=== PATIENT | female | born 1980 | race Caucasian/White ===

== ENCOUNTER 2023-11-07 16:00 | Emergency (ER) | payer BC, SELFPAY ==
[2023-11-07 16:02] VITALS: BP 133/87
[2023-11-07 16:04] VITALS: BMI 25.9
[2023-11-07 17:02] LABS: % Basophils 0.9 % (0-2); % Eosinophils 3.2 % (0-6); % Immature Granulocytes 0.2 % (0-0.5); % Lymphocytes 33.8 % (20.5-51.1); % Monocytes 9.5 % (1.7-9.3); % Neutrophils 52.4 % (42.2-75.2); Absolute Basophils 0.1 10^3/uL (0-0.2); Absolute Eosinophils 0.2 10^3/uL (0-0.7); Absolute Lymphocytes 1.8 10^3/uL (1.2-3.4); Absolute Monocytes 0.5 10^3/uL (0.1-0.6); Absolute Neutrophils 2.8 10^3/uL (1.4-6.5); Hematocrit 39.8 % (37.0-47.0); Hemoglobin 13.9 g/dL (12.0-16.0); Mean Corp Hgb Conc. 34.9 g/dL (33.0-37.0); Mean Corpuscular Hgb 32.3 pg (27.0-31.0); Mean Corpuscular Volume 92.3 fL (81.0-99.0); Mean Platelet Volume 8.8 fL (7.4-10.4); Nucleated Red Blood Cells % 0 %; Platelet Count 384 10^3/uL (130-400); Red Blood Cell Count 4.31 10^6/uL (4.20-5.40); Red Cell Dist. Width 12.7 % (11.5-14.5); White Blood Cell Count 5.4 10^3/uL (4.8-10.8)
[2023-11-07 17:03] LABS: Urine Albumin Negative (Neg - Trace); Urine Bilirubin Negative (Negative); Urine Character Clear (Clear); Urine Color Yellow; Urine Glucose Negative (Negative); Urine Ketone 1+ (Negative); Urine Leukocyte Negative (Negative); Urine Nitrite Negative (Negative); Urine Occult Blood Negative (Negative); Urine Specific Gravity 1.015 (<1.030); Urine Urobilinogen Negative (Neg - 1+); Urine pH 6.5 (5.0-9.0)
[2023-11-07] MEDS: ZOFRAN 4 MG IV (17:05)
[2023-11-07] MEDS: BENTYL 20 MG IM (17:05)
[2023-11-07 17:13] LABS: HCG, Serum Qualitative Screen Negative
[2023-11-07 17:18] LABS: ALT (SGPT) 27 U/L (0-35); AST (SGOT) 24 U/L (14-36); Albumin 4.9 g/dl (3.5-5.0); Alkaline Phosphatase 62 U/L (38-126); Blood Urea Nitrogen 9 mg/dl (7-17); Calcium 9.8 mg/dl (8.4-10.2); Carbon Dioxide 26 mmol/L (22-30); Chloride 100 mmol/L (98-107); Estimated Creatinine Clearance 99 ml/min; Glucose 98 mg/dl (70-99); Lipase 32 U/L (23-300); Potassium 3.8 mmol/L (3.5-5.1); Sodium 136 mmol/L (135-145); Total Bilirubin 0.6 mg/dl (0.2-1.3); Total Protein 7.9 g/dl (6.3-8.2); eGFR > 60.00
--- NOTE | 2023-11-07 17:23 | ED.GENMED ---
History of Present Illness
General
Chief Complaint: Abdominal Pain
Source: patient
Exam Limitations: none
Time Seen by Provider: 11/07/23 16:43
Nursing documentation reviewed up to this point in time: agreed with
Travel History
Have you had any contact with someone who has COVID-19?: No
Do you have any symptoms of coronavirus? Fever > 100 degrees, chills, cough, shortness of breath, sore throat, loss of taste or smell, muscle aches, or headache?: No
History of Present Illness
History of Present Illness:
43-year-old female with past medical history of IBS, GERD, asthma presenting to the emergency department from GI office with concerns of upper abdominal pain diffuse abdominal pain as well as 2 days of diarrhea has had some symptoms to some degree
over the past month has had decreased appetite as well. Has not been eating much over the past week.
Past History
Past History
ED Past Medical History: GERD and Other (Miscarriage, Pre aclampsia, Ovarian cyst, IBS)
ED Past Surgical History: and Gynecological
Social History
Tobacco: Non-smoker
Alcohol: Occasional
Personal:
Living: with family
Review of Systems
Review of Systems
Allergies reviewed?: Yes
All Other Systems: ROS reviewed and negative except as documented in HPI and ROS
Phy Exam
Physical Exam
Physical Exam:
GENERAL: Alert , in no apparent distress
EYE: pupils equal and reactive
NECK: Supple, no significant adenopathy.
ENT: o/p clr, mmm.
CARDIAC: Regular rate and rhythm .
LUNGS: Clear breath sounds bilaterally, no acute respiratory distress, no wheezes/rales/rhonchi
ABDOMEN: Abdominal pain mainly to the diffuse lower quadrants as well as the epigastric region no significant pain to the right upper quadrant left upper quadrant.
NEUROLOGICAL: Alert and oriented, no focal neuro deficits
SKIN: Warm and dry, skin intact.
MUSCULOSKELETAL: No edema, well perfused.
PSYCH: Normal and appropriate interaction.
Course
Orders/Labs/Results
Orders:
Orders
11/07/23 16:42
Test Result ONCE
11/07/23 16:45
Complete Blood Count/With Diff Urgent
Comprehensive Metabolic Panel Urgent
HCG, Serum Qualitative Screen Urgent
Lipase Urgent
11/07/23 16:49
Urinalysis Reflex To Culture Urgent
Date Specimen was Collected: 11/07/23
Time Specimen was Collected: 16:48
11/07/23 17:01
CT Abd/Pel (IV only)-DH only Urgent
Comment:
Reason For Exam: diffuse abd pain
Dicyclomine HCl [Bentyl] 20 mg IM NOW STA
Ondansetron Injectable [Zofran] 4 mg IV NOW STA
Abnormal Lab Results
11/07/23 11/07/23
16:45 16:49
MCH 32.3 H pg
(27.0-31.0)
Monocytes % 9.5 H %
(1.7-9.3)
Urine Ketones 1+ A
(Negative)
11/07/23 16:45
11/07/23 16:45
Vital Signs
Initial and Last Documented VS:
Initial Vital Signs
Temp Pulse Resp BP Pulse Ox
98.2 F 81 16 133/87 100
11/07/23 16:02 11/07/23 16:02 11/07/23 16:02 11/07/23 16:02 11/07/23 16:02
Last Documented Vital Signs
Temp Pulse Resp BP Pulse Ox
98.2 F 81 16 133/87 100
11/07/23 16:02 11/07/23 16:02 11/07/23 16:02 11/07/23 16:02 11/07/23 16:02
MDM/Problems Addressed
MDM/Problems Addressed:
43-year-old female presenting to the emergency department today with concerns of diffuse abdominal pain over the past month some slight diarrhea as well as decreased appetite over the past week. Was sent in by the GI doctor. Here has somewhat
diffuse abdominal pain mainly to the lower quadrants and epigastrium. Vital signs here were normal labs unremarkable troponin negative normal liver function test normal urinalysis. CT scan without emergent findings. No emergent findings on all
labs and urinalysis patient in no distress when reassessed after receiving Bentyl and Zofran. Case was discussed with patient's GI doctor who will have her follow-up closely as an outpatient and recommend starting her on Linzess stable for
discharge.
*Critical Care Note
Total Time (30-74mins, 75-104mins- exclusive of procedures): Not Applicable
ED Attending Note
-
Portions of this chart may have been created with voice recognition software.� Occasional wrong word or��sound alike� substitutions may have occurred due to the inherent limitations of voice recognition software.
Discharge Plan
Departure
Patient Disposition: Home (Routine Discharge)
Date of Disposition: 11/07/23
Time of Disposition: 19:15
Patient with high blood pressure during this ER visit?: No
Condition: Good
Covid-19: Not Applicable
Discharge Problem:
Abdominal pain
Instructions: Constipation, Adult (DC), Abdominal Pain
Prescriptions:
New
psyllium husk [Metamucil] 0.4 gram capsule
0.4 g PO DAILY PRN (Reason: Constipation) Qty: 10 0RF
polyethylene glycol 3350 [ClearLax] 17 gram/dose powder
4 g PO DAILY Qty: 119 0RF
Linzess 145 mcg capsule
145 mcg PO DAILY 14 Days Qty: 14 0RF
No Action
cetirizine 10 MG tablet
10 mg PO DAILY
rizatriptan [Maxalt] 10 MG tablet
10 mg PO PRN PRN (Reason: migraine)
topiramate 25 MG tablet
25 mg PO DAILY
sumatriptan succinate 6 MG/0.5 ML solution
6 mg SC PRN PRN (Reason: migraine)
pantoprazole 40 MG tablet,delayed release (DR/EC)
40 mg PO DAILY
buspirone 10 MG tablet
10 mg PO DAILY
albuterol sulfate [Proventil HFA] 90 MCG/PUFF HFA aerosol inhaler
1 puff inhalation PRN PRN (Reason: allergies)
fluticasone propionate 1 SPRAY spray,suspension
1 spray intranasal DAILY
Immunotherapy
1 dose INJ PRN PRN (Reason: according to regiment)
naproxen sodium [Aleve] 220 MG tablet
440 mg PO Q12H
cyclobenzaprine 10 MG tablet
10 mg PO PRN PRN (Reason: muscle pain)
alprazolam 0.5 MG tablet
0.25 mg PO Q6HPRN PRN (Reason: anxious)
duloxetine 20 MG capsule,delayed release(DR/EC)
20 mg PO QPM
acetaminophen 325 MG tablet
650 mg PO Q4HPRN PRN (Reason: mild pain) 0RF
hydromorphone 2 MG tablet
2 mg PO Q4HPRN PRN (Reason: severe pain ) Qty: 18 0RF
ibuprofen 200 MG tablet
600 mg PO Q4H PRN (Reason: mild pain) Qty: 0 0RF
Rx Instructions:
take with food
Referrals:
Adrian Galan MD [Active] - Follow up in 5-7 days
Tarik Woodruff DO [Family Provider] -
Activity Restrictions/Additional Instructions:
You came to the emergency department today with concerns of abdominal symptoms. Here you had a reassuring evaluation with normal CT and labs. Please follow closely with your GI doctor and take prescribed medications to help with symptoms. Return
to the emergency department for any worsening, new or concerning symptoms.
Interventions
Interventions:
*Risk Screen - Suicide Last Done: 11/07/23 16:02
*General Assessment Last Done: 11/07/23 16:47
*Neglect/Abuse Screening Last Done: 11/07/23 16:47
*ED COVID-19 Vaccine History Last Done: 11/07/23 16:04
[id number] Assessment Last Done: 11/07/23 16:47
[2023-11-07 19:49] VITALS: BP 130/79
== END 2023-11-07 19:50 | disposition home or self-care (01) ==
LOC: EMR 16:00
PROVIDERS: EMERGENCY PHYSICIAN Emergency Medicine; FAMILY PHYSICIAN Family Medicine
DX: R10.10 Upper abdominal pain, unspecified (principal); R19.7 Diarrhea, unspecified; K21.9 Gastro-esophageal reflux disease without esophagitis; J45.909 Unspecified asthma, uncomplicated; K58.0 Irritable bowel syndrome with diarrhea; Z91.040 Latex allergy status; Z88.5 Allergy status to narcotic agent; Z91.010 Allergy to peanuts; Z88.0 Allergy status to penicillin; Z91.013 Allergy to seafood; Z88.8 Allergy status to other drugs, medicaments and biological substances; Z91.018 Allergy to other foods; Z91.048 Other nonmedicinal substance allergy status
CPT/HCPCS: 99285; 96372; 96374; 74177; 80053; 81003; 83690; 84703; 85025; Q9967

== ENCOUNTER → 2023-11-19 06:34 | Day surgery (SDC) | payer BC, SELFPAY | LOC: GI 06:34 | PROVIDERS: ATTENDING PHYSICIAN Internal Medicine Gastroenterology | DX: R13.10 Dysphagia, unspecified (principal); K31.89 Other diseases of stomach and duodenum; K29.70 Gastritis, unspecified, without bleeding | CPT/HCPCS: 43239; 88305; 88342 ==

== ENCOUNTER 2024-03-05 08:58 | Emergency (ER) | payer BC, SELFPAY ==
[2024-03-05 09:02] VITALS: BP 116/80
--- NOTE | 2024-03-05 09:28 | ED.GENMED ---
History of Present Illness
General
Chief Complaint: Headache
Source: patient
Time Seen by Provider: 03/05/24 09:16
History of Present Illness
History of Present Illness:
43yoF with a history of lupus, migraines, IBS, and GERD presenting with her for evaluation of a headache. Headache began around 2 am this morning and was gradual in onset. Her headache feels like her typical migraines although it has been
years since she has had an episode this bad. Her pain is located frontally and is currently rated as a 10/10 in severity. She tried to take a dose of Maxalt but vomited shortly after taking it. Her then administered a sumatriptan injection
without relief. She reports photophobia and ongoing nausea. She also has indigestion which is chronic for her.
Past History
Past History
ED Past Medical History: GERD and Other (Miscarriage, Pre aclampsia, Ovarian cyst, IBS)
ED Past Surgical History: and Gynecological
Social History
Tobacco: Non-smoker
Alcohol: Occasional
Personal:
Living: with family
Phy Exam
Physical Exam
Physical Exam:
Sitting in a dark exam room with an eye mask on
General Physical Exam
General Presentation: moderate distress
General age: appears stated age
General Skin: warm and dry
General Habitus: normal
General Mental: alert
ENT Exam
ENT Exam: normocephalic
Additional ENT: No meningismus
Cardiovascular Exam
Cardiovascular Exam: regular rate/rhythm and no murmur
Pulmonary Exam
Pulmonary Exam: lungs clear, no respiratory distress, no crackles and no wheezing
Gastrointestinal Exam
Gastrointestinal Exam: soft, non distended and other (Mild tenderness in epigastrium)
Neurological Exam
Neurological Exam: alert and no motor deficits
[place] Coma Scale
Eye Opening: Spontaneous
Verbal Response: Oriented
Motor Response: Obeys Commands
GCS Total Score: 15
Skin Exam
Skin Exam: normal color and warm/dry
Psychiatric Exam
Psychiatric Exam: normal mood/affect
Course
Orders/Labs/Results
Orders:
Orders
03/05/24 09:30
0.9% Sodium Chloride 1000 ml [Nss] 1,000 ml IV BOLUS
Diphenhydramine [Benadryl] 25 mg IV NOW STA
Ketorolac [Toradol] 15 mg IV NOW STA
Metoclopramide [Reglan] 10 mg IV NOW STA
03/05/24 09:31
Test Result ONCE
03/05/24 09:35
Magnesium Sulfate 1 G/D5w [Magnesium Sulfate] 1 gm in 100 ml IV NOW
03/05/24 09:54
Complete Blood Count/With Diff Urgent
Comprehensive Metabolic Panel Urgent
HCG, Serum Qualitative Screen Urgent
Lipase Urgent
03/05/24 11:54
Dexamethasone Sod Phosphate [Decadron] 10 mg IV NOW STA
Abnormal Lab Results
03/05/24
09:54
RBC 4.08 L 10^6/uL
(4.20-5.40)
MCH 31.9 H pg
(27.0-31.0)
Absolute Neuts (auto) 7.0 H 10^3/uL
(1.4-6.5)
Absolute Lymphs (auto) 0.8 L 10^3/uL
(1.2-3.4)
Neutrophils % 82.8 H %
(42.2-75.2)
Lymphocytes % 9.3 L %
(20.5-51.1)
BUN 18 H mg/dl
(7-17)
Glucose 112 H mg/dl
(70-99)
03/05/24 09:54
03/05/24 09:54
Vital Signs
Initial and Last Documented VS:
Initial Vital Signs
Temp Pulse Resp BP Pulse Ox
98.3 F 73 18 116/80 100
03/05/24 09:02 03/05/24 09:02 03/05/24 09:02 03/05/24 09:02 03/05/24 09:02
Last Documented Vital Signs
Temp Pulse Resp BP Pulse Ox
98.3 F 74 20 127/68 100
03/05/24 09:02 03/05/24 11:56 03/05/24 11:56 03/05/24 11:56 03/05/24 11:56
MDM/Problems Addressed
Differential Diagnosis Includes:
43yoF here with a headache that began around 2am. Hx of migraines and this feels the same. No relief with sumatriptan. Not worst of life. No trauma. No fevers or neck stiffness. +Vomiting and photophobia. She is sitting in a dark room on exam. No
focal deficits or meningismus noted. She is afebrile and hemodynamically stable. Differential diagnosis includes but is not limited to: migraine, tension headache, doubt subarachnoid hemorrhage, doubt meningitis
Initial ED plan: Check abdominal labs and HCG. Defer head imaging as she has a history of similar headaches. IV migraine cocktail and reassess.
*Critical Care Note
Total Time (30-74mins, 75-104mins- exclusive of procedures): Not Applicable
Update Note
Update Note:
Labs overall unremarkable including normal white count, renal function, LFTs, lipase. HCG negative. On reassessment, she is feeling significantly improved. Headache is now a 3/10 in severity and she feels comfortable with discharge. Advised f/u with
PCP and neurologist. ED return precautions discussed. She was discharged in stable condition.
ED Attending Note
-
Portions of this chart may have been created with voice recognition software.� Occasional wrong word or��sound alike� substitutions may have occurred due to the inherent limitations of voice recognition software.
Discharge Plan
Departure
Patient Disposition: Home (Routine Discharge)
Date of Disposition: 03/05/24
Time of Disposition: 11:55
Patient with high blood pressure during this ER visit?: No
Discharge Problem:
Acute nonintractable headache
Instructions: Migraines (DC)
Prescriptions:
No Action
cetirizine 10 MG tablet
10 mg PO DAILY
rizatriptan [Maxalt] 10 MG tablet
10 mg PO PRN PRN (Reason: migraine)
topiramate 25 MG tablet
25 mg PO DAILY
sumatriptan succinate 6 MG/0.5 ML solution
6 mg SC PRN PRN (Reason: migraine)
pantoprazole 40 MG tablet,delayed release (DR/EC)
40 mg PO DAILY
buspirone 10 MG tablet
10 mg PO DAILY
albuterol sulfate [Proventil HFA] 90 MCG/PUFF HFA aerosol inhaler
1 puff inhalation PRN PRN (Reason: allergies)
fluticasone propionate 1 SPRAY spray,suspension
1 spray intranasal DAILY
Immunotherapy
1 dose INJ PRN PRN (Reason: according to regiment)
naproxen sodium [Aleve] 220 MG tablet
440 mg PO Q12H
cyclobenzaprine 10 MG tablet
10 mg PO PRN PRN (Reason: muscle pain)
alprazolam 0.5 MG tablet
0.25 mg PO Q6HPRN PRN (Reason: anxious)
duloxetine 20 MG capsule,delayed release(DR/EC)
20 mg PO QPM
acetaminophen 325 MG tablet
650 mg PO Q4HPRN PRN (Reason: mild pain) 0RF
hydromorphone 2 MG tablet
2 mg PO Q4HPRN PRN (Reason: severe pain ) Qty: 18 0RF
ibuprofen 200 MG tablet
600 mg PO Q4H PRN (Reason: mild pain) Qty: 0 0RF
Rx Instructions:
take with food
psyllium husk [Metamucil] 0.4 gram capsule
0.4 g PO DAILY PRN (Reason: Constipation) Qty: 10 0RF
polyethylene glycol 3350 [ClearLax] 17 gram/dose powder
4 g PO DAILY Qty: 119 0RF
Linzess 145 mcg capsule
145 mcg PO DAILY 14 Days Qty: 14 0RF
Referrals:
Tarki Woodruff DO [Family Provider] -
Activity Restrictions/Additional Instructions:
Please follow-up with your family doctor and neurologist. Return to the ER with any new or worsening symptoms.
Interventions
Interventions:
*Risk Screen - Suicide Last Done: 03/05/24 09:02
*General Assessment Last Done: 03/05/24 09:02
*Neglect/Abuse Screening Last Done: 03/05/24 09:02
ED- Fall Risk Assessment Last Done: 03/05/24 12:20
*ED COVID-19 Vaccine History Last Done: 03/05/24 12:20
*Nursing Disposition Last Done: 03/05/24 12:20
ED- Neurological Assessment Last Done: 03/05/24 09:55
Discharge Date and Time
Discharge Date/Time: 03/05/24 12:21
Print Language: [place]
[2024-03-05] MEDS: TORADOL 15 MG IV (09:42)
[2024-03-05] MEDS: NSS 1000 IV (09:42)
[2024-03-05] MEDS: REGLAN 10 MG IV (09:42)
[2024-03-05] MEDS: BENADRYL 25 MG IV (09:43)
[2024-03-05] MEDS: MAGNESIUM SULFATE 100 IV (09:43)
[2024-03-05 10:21] LABS: HCG, Serum Qualitative Screen Negative
[2024-03-05 10:23] LABS: ALT (SGPT) 16 U/L (0-35); AST (SGOT) 22 U/L (14-36); Albumin 4.3 g/dl (3.5-5.0); Alkaline Phosphatase 51 U/L (38-126); Blood Urea Nitrogen 18 mg/dl (7-17); Calcium 9.3 mg/dl (8.4-10.2); Carbon Dioxide 23 mmol/L (22-30); Chloride 104 mmol/L (98-107); Glucose 112 mg/dl (70-99); Potassium 4.1 mmol/L (3.5-5.1); Sodium 137 mmol/L (135-145); Total Bilirubin 0.6 mg/dl (0.2-1.3); Total Protein 6.8 g/dl (6.3-8.2); eGFR > 60.00
[2024-03-05 10:30] LABS: % Basophils 0.5 % (0-2); % Eosinophils 0.7 % (0-6); % Immature Granulocytes 0.2 % (0-0.5); % Lymphocytes 9.3 % (20.5-51.1); % Monocytes 5.7 % (1.7-9.3); % Neutrophils 82.8 % (42.2-75.2); Absolute Eosinophils 0.1 10^3/uL (0-0.7); Absolute Lymphocytes 0.8 10^3/uL (1.2-3.4); Absolute Monocytes 0.5 10^3/uL (0.1-0.6); Hematocrit 38.5 % (37.0-47.0); Hemoglobin 13.1 g/dL (12.0-16.0); Mean Corp Hgb Conc. 34.3 g/dL (33.0-37.0); Mean Corpuscular Hgb 31.9 pg (27.0-31.0); Mean Platelet Volume 9.3 fL (7.4-10.4); Nucleated Red Blood Cells % 0 %; Platelet Count 336 10^3/uL (130-400); Red Blood Cell Count 4.08 10^6/uL (4.20-5.40); Red Cell Dist. Width 13.5 % (11.5-14.5); White Blood Cell Count 8.4 10^3/uL (4.8-10.8)
[2024-03-05 10:32] VITALS: BP 117/63
[2024-03-05 10:40] LABS: Lipase 39 U/L (23-300)
[2024-03-05 11:56] VITALS: BP 127/68
[2024-03-05] MEDS: DECADRON 10 MG IV (11:58)
== END 2024-03-05 12:21 | disposition home or self-care (01) ==
LOC: EMR 08:58
PROVIDERS: Physician Assistant; EMERGENCY PHYSICIAN Emergency Medicine; FAMILY PHYSICIAN Family Medicine
DX: R51.9 Headache, unspecified (principal); R11.2 Nausea with vomiting, unspecified; K30 Functional dyspepsia
CPT/HCPCS: 99284; 96365; 96375 ×4; 80053; 83690; 84703; 85025

== ENCOUNTER → 2024-03-20 06:37 | Day surgery (SDC) | payer BC, SELFPAY | LOC: GI 06:37 | PROVIDERS: ATTENDING PHYSICIAN Internal Medicine Gastroenterology | DX: Z12.11 Encounter for screening for malignant neoplasm of colon (principal); K64.8 Other hemorrhoids; Q43.8 Other specified congenital malformations of intestine; Z80.0 Family history of malignant neoplasm of digestive organs | CPT/HCPCS: G0121 ==

== ENCOUNTER → 2024-08-22 15:36 | Outpatient (REF) | payer OTHER, SELFPAY | LOC: RAD 15:36 | PROVIDERS: ATTENDING PHYSICIAN Internal Medicine Rheumatology; FAMILY PHYSICIAN Family Medicine | DX: M16.0 Bilateral primary osteoarthritis of hip (principal) | CPT/HCPCS: 73523 ==

== ENCOUNTER → 2024-08-29 07:12 | Outpatient (REF) | payer OTHER, SELFPAY | LOC: HWWDC 07:12 | PROVIDERS: ATTENDING PHYSICIAN Obstetrics & Gynecology; FAMILY PHYSICIAN Family Medicine | DX: Z12.31 Encounter for screening mammogram for malignant neoplasm of breast (principal) | CPT/HCPCS: 77063; 77067 ==

== ENCOUNTER → 2024-10-21 07:32 | Outpatient (REF) | payer OTHER, SELFPAY | LOC: PAVMRI 07:32 | PROVIDERS: ATTENDING PHYSICIAN Specialist; FAMILY PHYSICIAN Family Medicine | DX: R51.9 Headache, unspecified (principal) | CPT/HCPCS: 70553; A9575 ==

== ENCOUNTER 2025-01-18 14:24 | Emergency (ER) | payer OTHER, SELFPAY ==
[2025-01-18 14:35] VITALS: BP 130/90
--- NOTE | 2025-01-18 15:58 | ED.GENMED ---
History of Present Illness
General
Chief Complaint: DVT/Possible Blood Clot
Source: patient
Exam Limitations: none
Time Seen by Provider: 01/18/25 15:51
History of Present Illness
History of Present Illness:
See MDM
Past History
Past History
ED Past Medical History: GERD and Other (Miscarriage, Pre aclampsia, Ovarian cyst, IBS)
ED Past Surgical History: and Gynecological
Social History
Tobacco: Non-smoker
Alcohol: Occasional
Personal:
Living: with family
Phy Exam
Physical Exam
Physical Exam:
See MDM
Course
Orders/Labs/Results
Orders:
Orders
01/18/25 14:40
Venous Doppler Lwr Ext Rt [US Periph Venous LOWER Ext RT] Urgent
Comment:
Reason For Exam: pain and swelling
Vital Signs
Initial and Last Documented VS:
Initial Vital Signs
Temp Pulse Resp BP Pulse Ox
98.8 F 82 18 130/90 99
01/18/25 14:35 01/18/25 14:35 01/18/25 14:35 01/18/25 14:35 01/18/25 14:35
Last Documented Vital Signs
Temp Pulse Resp BP Pulse Ox
98.8 F 82 18 130/90 99
01/18/25 14:35 01/18/25 14:35 01/18/25 14:35 01/18/25 14:35 01/18/25 14:35
MDM/Problems Addressed
Differential Diagnosis Includes:
HPI and MDM Narrative:
44-year-old female presenting with right calf pain. Patient has a history of varicose veins. She noted some swelling and tenderness to the posterior aspect of her right knee, overlying one of her varicose veins. Given her history of connective
tissue disease and lupus, she was concerned this could possibly be a blood clot. Ultrasound was performed prior to my evaluation showing no evidence of blood clot. It did not reference any Haque's cyst either. On my exam, she has mild tenderness
when I touch the quadricep. Discussed the possibility of tendinitis. Patient states tendinitis is very common for her. Given the ongoing symptoms, we discussed follow-up with Ortho if symptoms persist.
Physical exam
General: Well appearing and non-toxic
HEENT: protecting airway
Neck: appears supple
CV: No evidence of cyanosis
Resp: No accessory muscle use
Abd: Non-distended
Extremities: No deformities. Mild tenderness to posterior knee. No joint effusion. Mild tenderness with calf stretching. Distal extremity neurovascular intact
Neuro: alert
Psych: Normal affect
Skin: Intact
Problems Addressed including Acute and Chronic Conditions affecting care:
1. Right posterior knee pain
Acuity: acute
Prognosis: stable
Details: Given negative ultrasound, discussed likely tendinitis. Suggest follow-up with orthopedics if symptoms persist
Differential Diagnosis (but not limited to): DVT, Haque's cyst, muscle strain
Testing considered: Knee x-ray
Drug therapy (if applicable): OTC meds, please see d/c instruction regarding Rx drugs
Amount and/or Complexity of Data Reviewed
Clinical info obtained from: Patient
External data reviewed: N/A
Labs I independently reviewed (but not limited to): N/A
Radiology: Ultrasound report reviewed
Pulse Ox: not hypoxic
EKG independently reviewed: N/A
Tour Coordinator: N/A
Critical Care: N/A
Risk of Complication:
Social Determinants of health: Good social support
Discussed with other providers: N/A
Escalation of Care includes Admit/Obs: After being observed in the Emergency Department, pt stable for discharge.
Occasional wrong word or 'sound a like' substitutions may have occurred due to the inherent limitations of voice recognition software. Read the chart carefully and recognize, using context, where substitutions have occurred.
*Critical Care Note
Total Time (30-74mins, 75-104mins- exclusive of procedures): Not Applicable
ED Attending Note
-
Portions of this chart may have been created with voice recognition software.� Occasional wrong word or��sound alike� substitutions may have occurred due to the inherent limitations of voice recognition software.
Discharge Plan
Departure
Patient Disposition: Home (Routine Discharge)
Date of Disposition: 01/18/25
Time of Disposition: 16:02
Patient with high blood pressure during this ER visit?: No
Discharge Problem:
Strain of right calf muscle
Prescriptions:
No Action
cetirizine 10 MG tablet
10 mg PO DAILY
rizatriptan [Maxalt] 10 MG tablet
10 mg PO PRN PRN (Reason: migraine)
topiramate 25 MG tablet
25 mg PO DAILY
sumatriptan succinate 6 MG/0.5 ML solution
6 mg SC PRN PRN (Reason: migraine)
pantoprazole 40 MG tablet,delayed release (DR/EC)
40 mg PO DAILY
buspirone 10 MG tablet
10 mg PO DAILY
albuterol sulfate [Proventil HFA] 90 MCG/PUFF HFA aerosol inhaler
1 puff inhalation PRN PRN (Reason: allergies)
fluticasone propionate 1 SPRAY spray,suspension
1 spray intranasal DAILY
Immunotherapy
1 dose INJ PRN PRN (Reason: according to regiment)
naproxen sodium [Aleve] 220 MG tablet
440 mg PO Q12H
cyclobenzaprine 10 MG tablet
10 mg PO PRN PRN (Reason: muscle pain)
alprazolam 0.5 MG tablet
0.25 mg PO Q6HPRN PRN (Reason: anxious)
duloxetine 20 MG capsule,delayed release(DR/EC)
20 mg PO QPM
acetaminophen 325 MG tablet
650 mg PO Q4HPRN PRN (Reason: mild pain) 0RF
hydromorphone 2 MG tablet
2 mg PO Q4HPRN PRN (Reason: severe pain ) Qty: 18 0RF
ibuprofen 200 MG tablet
600 mg PO Q4H PRN (Reason: mild pain) Qty: 0 0RF
Rx Instructions:
take with food
psyllium husk [Metamucil] 0.4 gram capsule
0.4 g PO DAILY PRN (Reason: Constipation) Qty: 10 0RF
polyethylene glycol 3350 [ClearLax] 17 gram/dose powder
4 g PO DAILY Qty: 119 0RF
Linzess 145 mcg capsule
145 mcg PO DAILY 14 Days Qty: 14 0RF
Referrals:
Lukas Santos MD [Active, Orthopedics]
Activity Restrictions/Additional Instructions:
Please return for any worsening symptoms.
You may return at any time if you have further concerns.
Please follow up with your doctor at the first available appointment, preferably this week.
If symptoms persist, please call the orthopedist.
Thank you for choosing [facility].
Interventions
Interventions:
*Risk Screen - Suicide Last Done: 01/18/25 14:35
*General Assessment Last Done: 01/18/25 14:35
*Neglect/Abuse Screening Last Done: 01/18/25 14:35
Discharge Date and Time
Print Language: TURKMEN
== END 2025-01-18 16:20 | disposition home or self-care (01) ==
LOC: EMR 14:24
PROVIDERS: EMERGENCY PHYSICIAN Student in an Organized Health Care Education/Training Program; FAMILY PHYSICIAN Family Medicine
DX: S86.111A Strain of other muscle(s) and tendon(s) of posterior muscle group at lower leg level, right leg, initial encounter (principal); M79.661 Pain in right lower leg; X58.XXXA Exposure to other specified factors, initial encounter; I83.891 Varicose veins of right lower extremity with other complications; K58.9 Irritable bowel syndrome, unspecified; K21.9 Gastro-esophageal reflux disease without esophagitis; M32.9 Systemic lupus erythematosus, unspecified
CPT/HCPCS: 99284; 93971